=== PATIENT | female | born 1955 | race Caucasian/White ===

== ENCOUNTER 2019-03-06 17:54 | Emergency (ER) | payer OTHER ==
--- OUTSIDE RECORDS SUMMARY | 2019-03-06 17:56 | XMS REPORT ---
:1955 [facility] Address [address] [place] [address] Dr. Craven [address] [place] [id number] Care Team Providers Name Role Phone Unavailable Unavailable Unavailable Problems This patient has no known problems. Allergies, Adverse Reactions, Alerts This patient has no known allergies or adverse reactions. Medications This patient has no known medications.
--- NOTE | 2019-03-06 18:48 | EDPHYS ---
Physician Documentation [facility] Name: Becky Starkey Age: 63 yrs Sex: Female : 1955 Arrival Date: 03/06/2019 Time: 17:56 Bed 18 Private MD: ED Physician Pedrito Blackwell HPI: 03/06 19:17 This 63 yrs old Female presents to ER via Ambulatory with complaints of kb Laceration - Finger. 19:17 The patient has a laceration related to: slicing an apple and got her fingers occurred kb at home, and there are no complicating factors. The injury was accidental. The laceration(s) is(are) located on the palmar aspect of distal phalanx of right ring finger and palmar aspect of distal phalanx of right little finger. Onset: The symptoms/episode began/occurred just prior to arrival. Associated signs and symptoms: Pertinent positives: heavy bleeding, Pertinent negatives: deformity, dizziness, loss of consciousness, numbness distal to injury, suspected foreign body. The patient has not experienced similar symptoms in the past. The patient has not recently seen a physician. Historical: - Allergies: 18:16 No Known Allergies; ca1 - PMHx: 18:16 Hypertension; Thyroid problem; ca1 - PSHx: 18:16 Hysterectomy; ca1 - Immunization history:: Adult Immunizations up to date, Last tetanus immunization: unknown, Pneumococcal vaccine is up to date, Flu vaccine is not up to date. - Coronavirus screen:: The patient has NOT traveled to [place], [place], or [place] in the past 14 days. The patient has NOT had contact with known/suspected case of Coronavirus?. - Social history:: Smoking status: Patient reports the use of cigarette tobacco products, 1 cigarette a day. - Ebola Screening: : Patient negative for fever greater than or equal to 101.5 degrees Fahrenheit, and additional compatible Ebola Virus Disease symptoms Patient denies exposure to infectious person Patient denies travel to an Ebola-affected area in the 21 days before illness onset No symptoms or risks identified at this time. ROS: 19:16 Constitutional: Negative for fever, chills, and weight loss, ENT: Negative for injury, kb pain, and discharge, Neck: Negative for injury, pain, and swelling, Cardiovascular: Negative for chest pain, palpitations, and edema, Respiratory: Negative for shortness of breath, cough, wheezing, and pleuritic chest pain, Abdomen/GI: Negative for abdominal pain, nausea, vomiting, diarrhea, and constipation, Back: Negative for injury and pain, MS/Extremity: Negative for injury and deformity, Neuro: Negative for headache, weakness, numbness, tingling, and seizure. 19:16 Skin: Positive for avulsion, laceration(s), of the palmar aspect of distal phalanx of right little finger and palmar aspect of distal phalanx of right ring finger. Exam: 19:16 Constitutional: This is a well developed, well nourished patient who is awake, alert, kb and in no acute distress. Head/Face: Normocephalic, atraumatic. Neck: Trachea midline, no thyromegaly or masses palpated, and no cervical lymphadenopathy. Supple, full range of motion without nuchal rigidity, or vertebral point tenderness. No Meningismus. Chest/axilla: Normal chest wall appearance and motion. Nontender with no deformity. No lesions are appreciated. Cardiovascular: Regular rate and rhythm with a normal S1 and S2. No gallops, murmurs, or rubs. Normal PMI, no JVD. No pulse deficits. Respiratory: Lungs have equal breath sounds bilaterally, clear to auscultation and percussion. No rales, rhonchi or wheezes noted. No increased work of breathing, no retractions or nasal flaring. Abdomen/GI: Soft, non-tender, with normal bowel sounds. No distension or tympany. No guarding or rebound. No evidence of tenderness throughout. MS/ Extremity: Pulses equal, no cyanosis. Neurovascular intact. Full, normal range of motion. Neuro: Awake and alert, GCS 15, oriented to person, place, time, and situation. Cranial nerves II-XII grossly intact. Motor strength 5/5 in all extremities. Sensory grossly intact. Cerebellar exam normal. Normal gait. 19:16 Skin: injury, avulsion(s), A moderate sized of the palmar aspect of distal phalanx of right ring finger and palmar aspect of distal phalanx of right little finger. Vital Signs: 18:16 BP 151 / 76; Pulse 73; Resp 17 S; Temp 97.7(TE); Pulse Ox 98% on R/A; Weight 68.04 kg ca1 (R); Height 5 ft. 7 in. (170.18 cm) (R); Pain 4/10; 18:16 Body Mass Index 23.49 (68.04 kg, 170.18 cm) ca1 MDM: 18:24 Patient medically screened. kb 18:45 Data reviewed: vital signs, nurses notes. Data interpreted: Pulse oximetry: on room air kb is 98 %. Interpretation: normal. Counseling: I had a detailed discussion with the patient and/or guardian regarding: the historical points, exam findings, and any diagnostic results supporting the discharge/admit diagnosis, the need for outpatient follow up, a family practitioner, to return to the emergency department if symptoms worsen or persist or if there are any questions or concerns that arise at home. 03/06 18:45 Order name: Wound Care; Complete Time: 19:30 kb 03/06 18:45 Order name: Wound dressing; Complete Time: 19:30 kb Administered Medications: 18:50 Drug: traMADol 50 mg Route: PO; rb1 19:34 Follow up: Response: No adverse reaction; Pain is decreased; RASS: Alert and Calm (0) 18:52 Drug: Tetanus-Diphtheria Toxoid Adult 0.5 ml {[employer]: [employer]. Exp: rb1 01/03/2021. Lot #: [id number]. } Route: IM; Site: right deltoid; 19:34 Follow up: Response: No adverse reaction Disposition: 03/07 07:01 Co-signature as Attending Physician, Pedrito Blackwell MD. rn Disposition: 03/06/19 18:47 Discharged to Home. Impression: Laceration without foreign body of right ring finger with damage to nail - avulsion laceration, Laceration without foreign body of right little finger with damage to nail - avulsion laceration. - Condition is Stable. - Discharge Instructions: Nonsutured Laceration Care, Laceration Care, Adult, [id number]. - Prescriptions for Tramadol 50 mg Oral Tablet - take 1 tablet by ORAL route every 8 hours as needed; 12 tablet. - Medication Reconciliation Form, Thank You Letter, Antibiotic Education, Prescription Opioid Use form. - Follow up: Emergency Department; When: As needed; Reason: Worsening of condition. Follow up: Private Physician; When: 2 - 3 days; Reason: Recheck today's complaints, Continuance of care, Re-evaluation by your physician. Signatures: Altagracia Jacques FNP-C FNP-Ckb Pedrito Blackwell MD MD rn Viridiana Gastelum, RN RN rb1 Rosy Blanco Machelle Moreno RN RN ca1 Corrections: (The following items were deleted from the chart) 03/06 19:35 18:47 03/06/2019 18:47 Discharged to Home. Impression: Laceration without foreign body wh of right ring finger with damage to nail - avulsion laceration; Laceration without foreign body of right little finger with damage to nail - avulsion laceration. Condition is Stable. Forms are Medication Reconciliation Form, Thank You Letter, Antibiotic Education, Prescription Opioid Use. Follow up: Emergency Department; When: As needed; Reason: Worsening of condition. Follow up: Private Physician; When: 2 - 3 days; Reason: Recheck today's complaints, Continuance of care, Re-evaluation by your physician. kb
--- NOTE | 2019-03-06 18:48 | ER ---
Nurse's Notes [facility] Name: Becky Starkey Age: 63 yrs Sex: Female : 1955 Arrival Date: 03/06/2019 Time: 17:56 Bed 18 Private MD: Diagnosis: Laceration without foreign body of right ring finger with damage to nail-avulsion laceration;Laceration without foreign body of right little finger with damage to nail-avulsion laceration Presentation: 03/06 18:13 Presenting complaint: Patient states: Laceration on the tip of the R ring and pinky ca1 fingers by a slicer. Happened 430PM. Transition of care: patient was not received from another setting of care. Complicating Factors: There are no complicating factors for this patient. Onset of symptoms was March 06, 2019. Risk Assessment: Do you want to hurt yourself or someone else? Patient reports no desire to harm self or others. Initial Sepsis Screen: Does the patient meet any 2 criteria? No. Patient's initial sepsis screen is negative. Does the patient have a suspected source of infection? No. Patient's initial sepsis screen is negative. Care prior to arrival: Medication(s) given: Tylenol, 1000 mg. 18:13 Method Of Arrival: Ambulatory ca1 18:13 Acuity: JAMES 4 ca1 Historical: - Allergies: 18:16 No Known Allergies; ca1 - PMHx: 18:16 Hypertension; Thyroid problem; ca1 - PSHx: 18:16 Hysterectomy; ca1 - Immunization history:: Adult Immunizations up to date, Last tetanus immunization: unknown, Pneumococcal vaccine is up to date, Flu vaccine is not up to date. - Coronavirus screen:: The patient has NOT traveled to [place], [place], or [place] in the past 14 days. The patient has NOT had contact with known/suspected case of Coronavirus?. - Social history:: Smoking status: Patient reports the use of cigarette tobacco products, 1 cigarette a day. - Ebola Screening: : Patient negative for fever greater than or equal to 101.5 degrees Fahrenheit, and additional compatible Ebola Virus Disease symptoms Patient denies exposure to infectious person Patient denies travel to an Ebola-affected area in the 21 days before illness onset No symptoms or risks identified at this time. Screenin:26 Abuse screen: Denies threats or abuse. Nutritional screening: No deficits noted. rb1 Tuberculosis screening: No symptoms or risk factors identified. Fall Risk None identified. Assessment: 18:26 General: Appears in no apparent distress. comfortable, Behavior is calm, cooperative. rb1 General: Pt. was cutting fruit when she accidently cut her fingers. Pain: Complains of pain in 4th \T\ 5th digits on the right hand Pain currently is 5 out of 10 on a pain scale. Pain began 1645 today. Neuro: Level of Consciousness is awake, alert, obeys commands, Oriented to person, place, time, situation. Cardiovascular: Capillary refill < 3 seconds is brisk in bilateral fingers. Respiratory: Airway is patent Respiratory effort is even, unlabored, Respiratory pattern is regular, symmetrical. GI: No signs and/or symptoms were reported involving the gastrointestinal system. : No signs and/or symptoms were reported regarding the genitourinary system. Derm: Skin is pink, warm \T\ dry. Musculoskeletal: Range of motion: intact in all extremities. Injury Description: Laceration sustained to 4th \T\ 5th digits is bleeding minimally, dressing applied to the fingers was sustained 1-2 hours ago. is bleeding a small amount a dressing was applied. Vital Signs: 18:16 BP 151 / 76; Pulse 73; Resp 17 S; Temp 97.7(TE); Pulse Ox 98% on R/A; Weight 68.04 kg ca1 (R); Height 5 ft. 7 in. (170.18 cm) (R); Pain 4/10; 18:16 Body Mass Index 23.49 (68.04 kg, 170.18 cm) ca1 ED Course: 17:56 Patient arrived in ED. as 18:15 Triage completed. ca1 18:16 Altagracia Jacques FNP-C is PHCP. kb 18:16 Pedrito Blackwell MD is Attending Physician. kb 18:16 Arm band placed on right wrist. ca1 18:26 Patient has correct armband on for positive identification. Bed in low position. Call rb1 light in reach. Side rails up X 1. Pulse ox on. NIBP on. 18:42 Viridiana Gastelum, RN is Primary Nurse. rb1 19:34 No provider procedures requiring assistance completed. Patient did not have IV access wh during this emergency room visit. Administered Medications: 18:50 Drug: traMADol 50 mg Route: PO; rb1 19:34 Follow up: Response: No adverse reaction; Pain is decreased; RASS: Alert and Calm (0) 18:52 Drug: Tetanus-Diphtheria Toxoid Adult 0.5 ml {[employer]: [employer]. Exp: rb1 01/03/2021. Lot #: [id number]. } Route: IM; Site: right deltoid; 19:34 Follow up: Response: No adverse reaction Outcome: 18:47 Discharge ordered by . soham 19:34 Discharged to home ambulatory, with family. 19:34 Condition: stable 19:34 Discharge instructions given to patient, family, Instructed on discharge instructions, follow up and referral plans. no drinking with medication, no driving heavy equipment, medication usage, wound care, POC Demonstrated understanding of instructions, follow-up care, medications, wound care, POC Prescriptions given X 1. 19:35 Patient left the ED. Signatures: Altagracia Jacques, LICENSED CLINICIAN-C LICENSED CLINICIAN-Noeb Fabiola Krishna Rebecca, RN RN rb1 Rosy Blanco Machelle Moreno RN RN ca1 Corrections: (The following items were deleted from the chart) 18:17 18:13 Care prior to arrival: None. ca1 ca1
[2019-03-06] MEDS ORDERED: TETANUS & DIPHTHERIA TOX,ADULT 0.5 ML VIAL ONE (18:54)
[2019-03-06] MEDS ORDERED: TRAMADOL HCL 50 MG TAB ONE (18:55)
[2019-03-06 22:05] VITALS: BP 151/76; TEMP 97.7; O2SAT 98
== END 2019-03-06 19:35 | disposition home or self-care (01) ==
LOC: ER 17:54
DX: S61.314A Laceration without foreign body of right ring finger with damage to nail, initial encounter (principal); S61.316A Laceration without foreign body of right little finger with damage to nail, initial encounter; W26.0XXA Contact with knife, initial encounter; Y93.89 Activity, other specified; Y92.010 Kitchen of single-family (private) house as the place of occurrence of the external cause; Z23 Encounter for immunization
CPT/HCPCS: 90471; 90714; 99283